=== PATIENT | male | born 1990 | race Caucasian/White ===

== ENCOUNTER 2020-08-02 08:59 | Emergency (ER) | payer OTHER ==
[2020-08-02 10:10] LABS: HEMOGLOBIN 15.4 gm/dl (14.0-17.5); RED BLOOD COUNT 5.2 M/UL (4.20-5.50); WHITE BLOOD COUNT 7.9 K/UL (4.5-11.0)
[2020-08-02 10:35] LABS: BUN/CREATININE RATIO 19 (0-10)
[2020-08-02] MEDS ORDERED: LISINOPRIL10 MG PO (11:25)
== END 2020-08-02 11:39 | disposition home or self-care (01) ==
LOC: ER1 08:59
PROVIDERS: Physician Assistant
DX: I10 Essential (primary) hypertension (principal); R42 Dizziness and giddiness
CPT/HCPCS: 71045; 80053; 82550; 82553; 83874; 84484; 85025; 93005; 99284